=== PATIENT | female | born 1975 | race Caucasian/White ===

== ENCOUNTER 2016-08-10 18:34 | Emergency (ER) | payer MEDICARE, MEDICAID ==
[2016-08-10 20:14] VITALS: BP 114/76
--- NOTE | 2016-08-10 20:33 | UC ---
Throat Pain/Nasal Josiah HPI - HPI Summary HPI Summary: Nasal congestion, ST, cough, aches starting 5 days ago. Denies fever or trouble breathing. - History of Current Complaint Chief Complaint: UCGeneralIllness Stated Complaint: SORE THROAT Time Seen by Provider: 08/10/16 20:16 Hx Obtained From: Patient Hx Last Menstrual Period: has mirena ?: No Onset/Duration: Gradual Onset, Lasting Days Severity: Moderate Cough: Productive Associated Signs & Symptoms: Positive: Sinus Discomfort, Nasal Discharge. Negative: Fever, Vomiting - Allergies/Home Medications Allergies/Adverse Reactions: Allergies Allergy/AdvReac Type Severity Reaction Status Date / Time No Known Allergies Allergy Verified 08/10/16 20:13 PMH/Surg Hx/FS Hx/Imm Hx Endocrine History Of: Denies: Diabetes, Thyroid Disease Cardiovascular History Of: Denies: Cardiac Disorders, Hypertension, Pacemaker/ICD Respiratory History Of: Denies: COPD, Asthma GI/ History Of: Denies: Ulcer - Surgical History Surgical History: Yes Surgery Procedure, Year, and Place: LSP SURGERY L4-L5, - Family History Known Family History: Positive: None - Social History Lives: With Family Alcohol Use: Occasionally Substance Use Type: None Smoking Status (MU): Heavy Every Day Tobacco Smoker Type: Cigarettes Amount Used/How Often: 1 ppd Length of Time of Smoking/Using Tobacco: started ~ age 19 Have You Smoked in the Last Year: Yes - Immunization History Most Recent Influenza Vaccination: [id number] Review of Systems Constitutional: Negative Skin: Negative Eyes: Negative ENT: Sore Throat, Nasal Discharge Respiratory: Cough Cardiovascular: Negative Gastrointestinal: Negative Genitourinary: Negative Motor: Negative Neurovascular: Negative Musculoskeletal: Negative Neurological: Negative Psychological: Negative All Other Systems Reviewed And Are Negative: Yes Physical Exam Triage Information Reviewed: Yes Appearance: Well-Appearing, No Pain Distress, Well-Nourished Vital Signs: Initial Vital Signs Temp 98.0 F 08/10/16 20:10 Pulse 85 08/10/16 20:10 Resp 16 08/10/16 20:10 BP 114/76 08/10/16 20:10 Pulse Ox 98 08/10/16 20:10 Vital Signs Reviewed: Yes Eye Exam: Normal Eyes: Positive: Conjunctiva Clear ENT: Positive: Hearing grossly normal, Pharynx normal, Nasal congestion, Nasal drainage, TMs normal Dental Exam: Normal Neck exam: Normal Neck: Positive: Supple, Nontender, No Lymphadenopathy Respiratory Exam: Normal Respiratory: Positive: Chest non-tender, Lungs clear, Normal breath sounds, No respiratory distress, No accessory muscle use Cardiovascular Exam: Normal Cardiovascular: Positive: RRR, No Murmur Musculoskeletal Exam: Normal Musculoskeletal: Positive: ROM Intact Neurological Exam: Normal Neurological: Positive: Alert Psychological Exam: Normal Skin Exam: Normal Throat Pain/Nasal Course/Dx - Differential Dx/Diagnosis Provider Diagnoses: URI, likely viral Discharge - Discharge Plan Condition: Stable Disposition: HOME Patient Education Materials: Upper Respiratory Infection (ED) Additional Instructions: Call or return if you develop increasing fever, shortness of breath, chest pain , bloody sputum, or otherwise worsen. If you have not improved at all after several days, contact your primary care physician or return here.
== END 2016-08-10 20:53 | disposition home or self-care (01) ==
LOC: UCCORT 18:34
DX: J06.9 Acute upper respiratory infection, unspecified (principal); F17.210 Nicotine dependence, cigarettes, uncomplicated
CPT/HCPCS: 87651; 99211; G0463

== ENCOUNTER 2017-02-03 10:40 | Emergency (ER) | payer MEDICARE, MEDICAID ==
[2017-02-03 11:01] VITALS: BP 108/74
--- NOTE | 2017-02-03 11:32 | RAD ---
INDICATION: Right great toe pain and swelling one day after falling off of a stool TECHNIQUE: 3 views of the right great toe were obtained. FINDINGS: The visualized bones are normal alignment. Joint spaces appear maintained. No fracture is seen. IMPRESSION: NO EVIDENCE FOR FRACTURE. IF THE PATIENT'S SYMPTOMS PERSIST RECOMMEND FOLLOW-UP IMAGING.
--- NOTE | 2017-02-03 11:57 | UC ---
Lower Extremity/Ankle HPI - HPI Summary HPI Summary: YESTERDAY HIT RIGHT 1ST TOE ON STOOL. 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 Hx Last Menstrual Period: unknown, mirena Onset/Duration: Sudden Onset, Lasting Days Severity Initially: Mild Severity Currently: Mild Aggravating Factor(s): Standing, Ambulation Alleviating Factor(s): Rest Able to Bear Weight: Yes - Risk Factors Gout Risk Factors: Negative DVT Risk Factors: Negative Septic Arthritis Risk Factor: Negative - Allergies/Home Medications Allergies/Adverse Reactions: Allergies Allergy/AdvReac Type Severity Reaction Status Date / Time No Known Allergies Allergy Verified 02/03/17 11:01 PMH/Surg Hx/FS Hx/Imm Hx Previously Healthy: Yes - Surgical History Surgical History: Yes Surgery Procedure, Year, and Place: LSP SURGERY L4-L5, - Family History Known Family History: Positive: None Negative: Blood Disorder - Social History Occupation: Employed Full-time Lives: With Family Alcohol Use: Occasionally Substance Use Type: None Smoking Status (MU): Heavy Every Day Tobacco Smoker Type: Cigarettes Amount Used/How Often: 1 ppd Length of Time of Smoking/Using Tobacco: started ~ age 19 Have You Smoked in the Last Year: Yes - Immunization History Most Recent Influenza Vaccination: 12/2016 Review of Systems Constitutional: Negative Skin: Bruising Eyes: Negative ENT: Negative Respiratory: Negative Cardiovascular: Negative Gastrointestinal: Negative Genitourinary: Negative Motor: Negative Neurovascular: Negative Musculoskeletal: Arthralgia, Myalgia Neurological: Negative Psychological: Negative Is Patient Immunocompromised?: No All Other Systems Reviewed And Are Negative: Yes Physical Exam Triage Information Reviewed: Yes Appearance: Well-Appearing, No Pain Distress, Well-Nourished Vital Signs: Initial Vital Signs Temp 98.1 F 02/03/17 10:58 Pulse 75 02/03/17 10:58 Resp 16 02/03/17 10:58 BP 108/74 02/03/17 10:58 Pulse Ox 98 02/03/17 10:58 Vital Signs Reviewed: Yes Eye Exam: Normal ENT Exam: Normal ENT: Positive: Normal ENT inspection, TMs normal Dental Exam: Normal Neck exam: Normal Neck: Positive: Supple, Nontender Respiratory Exam: Normal Respiratory: Positive: Chest non-tender, Lungs clear, Normal breath sounds, No respiratory distress, No accessory muscle use Cardiovascular Exam: Normal Cardiovascular: Positive: RRR, No Murmur, Pulses Normal Abdominal Exam: Normal Musculoskeletal Exam: Normal Musculoskeletal: Positive: Strength Intact, ROM Intact Neurological Exam: Normal Psychological Exam: Normal Skin Exam: Normal Lower Extremity Course/Dx - Differential Dx/Diagnosis Differential Diagnosis/HQI/PQRI: Fracture (Closed), Sprain, Strain Provider Diagnoses: RIGHT FIRST TOE CONTUSION Discharge - Discharge Plan Condition: Stable Disposition: HOME Patient Education Materials: Foot Contusion (ED) Referrals: REHAN Cisneros [Primary Care Provider] -
== END 2017-02-03 12:00 | disposition home or self-care (01) ==
LOC: UCCORT 10:40
DX: S90.111A Contusion of right great toe without damage to nail, initial encounter (principal); F17.210 Nicotine dependence, cigarettes, uncomplicated; W22.03XA Walked into furniture, initial encounter
CPT/HCPCS: 99211; G0463

== ENCOUNTER 2017-09-07 15:29 | Emergency (ER) | payer MEDICARE, MEDICAID ==
[2017-09-07 15:46] VITALS: BP 110/66
--- NOTE | 2017-09-07 16:14 | UC ---
Hand/Wrist HPI - HPI Summary HPI Summary: 42 yo female was walking dog dog jumped into car and pulled her over c/o right ring finger pain she is right handed - History Of Current Complaint Chief Complaint: UCUpperExtremity Stated Complaint: RT HAND RING FINGER INJURY Time Seen by Provider: 09/07/17 15:48 Hx Obtained From: Patient Hx Last Menstrual Period: has mirena Onset/Duration: Sudden Onset Severity Initially: Moderate Severity Currently: Mild Pain Intensity: 3 Pain Scale Used: 0-10 Numeric Character Of Pain: Dull, Aching, Throbbing Aggravating Factor(s): Movement Alleviating Factor(s): Rest, Ice Associated Signs And Symptoms: Positive: Swelling, Bruising Hands: 1 - swollen/ecchymotic - Allergies/Home Medications Allergies/Adverse Reactions: Allergies Allergy/AdvReac Type Severity Reaction Status Date / Time No Known Allergies Allergy Verified 02/03/17 11:01 Home Medications: Home Medications Levonorgestrel (Iud) [Mirena IUD] 20 mcg IU DAILY 09/07/17 [History Confirmed ] PMH/Surg Hx/FS Hx/Imm Hx Previously Healthy: Yes - Surgical History Surgical History: Yes Surgery Procedure, Year, and Place: LSP SURGERY L4-L5, - Family History Known Family History: Positive: None Negative: Cardiac Disease, Hypertension, Diabetes, Blood Disorder - Social History Alcohol Use: Rare Substance Use Type: None Smoking Status (MU): Heavy Every Day Tobacco Smoker Type: Cigarettes Amount Used/How Often: 1 ppd Length of Time of Smoking/Using Tobacco: started ~ age 19 Have You Smoked in the Last Year: Yes - Immunization History Most Recent Influenza Vaccination: 12/2016 Review of Systems Constitutional: Negative Skin: Bruising Eyes: Negative ENT: Negative Respiratory: Negative Cardiovascular: Negative Gastrointestinal: Negative Genitourinary: Negative Motor: Negative Neurovascular: Negative Musculoskeletal: Arthralgia Neurological: Negative Psychological: Negative Is Patient Immunocompromised?: No All Other Systems Reviewed And Are Negative: Yes Physical Exam Triage Information Reviewed: Yes Appearance: Well-Appearing, No Pain Distress, Well-Nourished Vital Signs: Initial Vital Signs Temp 98.1 F 09/07/17 15:42 Pulse 78 09/07/17 15:42 Resp 16 09/07/17 15:42 BP 110/66 09/07/17 15:42 Pulse Ox 99 09/07/17 15:42 Vital Signs Reviewed: Yes Eyes: Positive: Conjunctiva Clear ENT: Positive: Hearing grossly normal. Negative: Nasal congestion, Nasal drainage, Trismus, Muffled voice, Hoarse voice Neck: Positive: Supple, Nontender Respiratory: Positive: Lungs clear, Normal breath sounds, No respiratory distress, No accessory muscle use Cardiovascular: Positive: RRR, No Murmur Musculoskeletal: Positive: Edema @ - 4th dp right, Other: - see image Neurological: Positive: Alert Psychological Exam: Normal Skin Exam: Normal Diagnostics - Radiology No standard instances Xray Interpretation: Positive (See Comments) - There is a comminuted fracture of the distal phalanx of the fourth digit Radiology Interpretation Completed By: Radiologist Hand/Wrist Course/Dx - Differential Dx/Diagnosis Provider Diagnoses: fracture right 4th distal phalanx. closed. min distracted Discharge - Sign-Out/Discharge Documenting (check all that apply): Discharge/Admit/Transfer - Discharge Plan Condition: Stable Disposition: HOME Patient Education Materials: Finger Fracture (ED) Referrals: Scott Sadler MD [Medical Doctor] - As Soon As Possible Additional Instructions: elevate elevate elevate splint advil or amanve call orthopedist in AM for follow to make sure you don't need a pin - Billing Disposition and Condition Condition: STABLE Disposition: HOME
--- NOTE | 2017-09-07 16:15 | RAD ---
INDICATION: Injury COMPARISON: None TECHNIQUE: 3 views of the right third digit were obtained FINDINGS: There is a comminuted fracture of the distal phalanx of the fourth digit. The fracture fragments are mildly distracted. There is associated soft tissue swelling. No additional findings were obtained. IMPRESSION: FRACTURE DISTAL PHALANX OF THE THIRD DIGIT
== END 2017-09-07 16:29 | disposition home or self-care (01) ==
LOC: UCCORT 15:29
DX: S62.634A Displaced fracture of distal phalanx of right ring finger, initial encounter for closed fracture (principal); W17.89XA Other fall from one level to another, initial encounter; Y93.89 Activity, other specified; Y92.9 Unspecified place or not applicable; F17.210 Nicotine dependence, cigarettes, uncomplicated
CPT/HCPCS: 73140; 99211; G0463

== ENCOUNTER 2018-09-08 19:35 | Emergency (ER) | payer MEDICAID, MEDICARE ==
[2018-09-08 19:58] VITALS: BP 115/75
--- NOTE | 2018-09-08 20:02 | UC ---
Lower Extremity/Ankle HPI - HPI Summary HPI Summary: Over the past week the patient noticed that her right paz was starting to hurt. She had a dog bite there approximate 3 years ago and has had no problems until the past week. She denies any injury. She states that her right paz is swollen she denies any calf pain. - History of Current Complaint Chief Complaint: UCLowerExtremity Stated Complaint: RIGHT LOWER LEG SWELLING Time Seen by Provider: 09/08/18 19:57 Hx Obtained From: Patient Hx Last Menstrual Period: has mirena ?: No Onset/Duration: Gradual Onset Severity Initially: Mild Severity Currently: Mild Pain Intensity: 5 Aggravating Factor(s): Ambulation, Other - More pain with stretching her foot. Alleviating Factor(s): Rest Able to Bear Weight: Yes - Allergies/Home Medications Allergies/Adverse Reactions: Allergies Allergy/AdvReac Type Severity Reaction Status Date / Time No Known Allergies Allergy Verified 09/08/18 19:58 PMH/Surg Hx/FS Hx/Imm Hx Previously Healthy: Yes - Surgical History Surgical History: Yes Surgery Procedure, Year, and Place: LSP SURGERY L4-L5, - Family History Known Family History: Positive: None Negative: Cardiac Disease, Hypertension, Diabetes, Blood Disorder - Social History Alcohol Use: Occasionally Substance Use Type: None Smoking Status (MU): Former Smoker Type: Cigarettes Amount Used/How Often: 1 ppd Length of Time of Smoking/Using Tobacco: started ~ age 19 Have You Smoked in the Last Year: Yes When Did the Patient Quit Smoking/Using Tobacco: 02/2018 - Immunization History Most Recent Influenza Vaccination: 12/2016 Review of Systems All Other Systems Reviewed And Are Negative: Yes Skin: Positive: Other - Tenderness over the healed dog bite (from 3 years ago). Mild swelling of the right tib-fib and ankle. Motor: Positive: Negative Neurovascular: Positive: Negative Musculoskeletal: Positive: Negative Neurological: Positive: Negative Is Patient Immunocompromised?: No Physical Exam Triage Information Reviewed: Yes Appearance: Well-Appearing, No Pain Distress, Well-Nourished Vital Signs: Initial Vital Signs Temp 97.4 F 09/08/18 19:55 Pulse 78 09/08/18 19:55 Resp 16 09/08/18 19:55 BP 115/75 09/08/18 19:55 Pulse Ox 100 09/08/18 19:55 Vital Signs Reviewed: Yes Musculoskeletal: Positive: Strength Intact, ROM Intact, Other: - Calf nontender , right lower leg is mildly swollen compared to the left, the area over the healed dog bite is warm to touch with mild erythema. Good peripheral pulses neuro sensation capillary refill, full range of motion although with flexion she does feel more of a pulling sensation from the right ankle up to the area of the heel dog bite. Neurological: Positive: Alert, Muscle Tone Normal Lower Extremity Course/Dx - Course Course Of Treatment: X-ray of the right tib-fib was negative. At this point I believe this is a mild cellulitis and she is going to elevate as much as possible over the weekend apply warm compresses and start an antibiotic and follow-up with her primary care provider next week if no improvement. I advised her to go to the emergency room if she has any worsening symptoms, if she has increased pain or change in temperature of her lower leg. The patient is agreeable with this plan of action. - Differential Dx/Diagnosis Provider Diagnosis: Cellulitis of right lower leg Discharge - Sign-Out/Discharge Documenting (check all that apply): Patient Departure All imaging exams completed and their final reports reviewed: No - Discharge Plan Condition: Fair Disposition: HOME Prescriptions: Amoxicillin/Clavulanate TAB* [Augmentin TAB 875*] 875 mg PO BID 10 Days #20 tab Patient Education Materials: Cellulitis (DC) Referrals: Emilia Cheung PA [Primary Care Provider] - Additional Instructions: Elevate as much as possible over the weekend, warm moist compresses to the area 4-6 times a day for 20 minutes each time, you can take Motrin 6 or milligrams every 8 hours for pain and take the Augmentin with food. Definite follow-up with your primary care provider in 3 or 4 days if no improvement if you have any worsening symptoms over the weekend you are to go to the emergency room for further care. - Billing Disposition and Condition Condition: FAIR Disposition: Home - Attestation Statements Provider Attestation: Per institutional requirements, I have reviewed the chart, however, I was not consulted specifically or made aware of this patient by the midlevel provider. I did not personally evaluate, interact with , or disposition this patient.
--- NOTE | 2018-09-09 09:30 | UC ---
- Progress Note Progress Note: xray report right Fib/Tib: no fracture noted Course/Dx - Diagnoses Provider Diagnoses: Cellulitis of right lower leg Discharge - Sign-Out/Discharge Documenting (check all that apply): Patient Departure All imaging exams completed and their final reports reviewed: Yes - Discharge Plan Condition: Fair Disposition: HOME Prescriptions: Amoxicillin/Clavulanate TAB* [Augmentin TAB 875*] 875 mg PO BID 10 Days #20 tab Patient Education Materials: Cellulitis (DC) Referrals: Emilia Cheung PA [Primary Care Provider] - Additional Instructions: Elevate as much as possible over the weekend, warm moist compresses to the area 4-6 times a day for 20 minutes each time, you can take Motrin 6 or milligrams every 8 hours for pain and take the Augmentin with food. Definite follow-up with your primary care provider in 3 or 4 days if no improvement if you have any worsening symptoms over the weekend you are to go to the emergency room for further care. - Billing Disposition and Condition Condition: FAIR Disposition: Home
== END 2018-09-08 20:29 | disposition home or self-care (01) ==
LOC: UCCORT 19:35
DX: L03.115 Cellulitis of right lower limb (principal); Z87.891 Personal history of nicotine dependence
CPT/HCPCS: 99212; G0463

== ENCOUNTER 2018-10-09 18:31 | Emergency (ER) | payer MEDICARE ==
[2018-10-09 19:17] VITALS: BP 123/72
--- NOTE | 2018-10-09 19:46 | UC ---
Knee Pain HPI - HPI Summary HPI Summary: 43-year-old female comes in with a chief complaint of right knee pain. About one week ago patient fell and landed on her right knee. She did have an abrasion there which scabbed over and then healed up and since then she's had swelling on the anterior portion of her knee. Hurts worse when she tries put any weight on the knee itself when kneeling. Knee feels stable to activity and weightbearing. No fevers or chills. No drainage. - History of Current Complaint Chief Complaint: UCLowerExtremity Stated Complaint: RIGHT KNEE COMPLAINT Time Seen by Provider: 10/09/18 19:35 Hx Last Menstrual Period: IUD Pain Intensity: 0 - Allergies/Home Medications Allergies/Adverse Reactions: Allergies Allergy/AdvReac Type Severity Reaction Status Date / Time No Known Allergies Allergy Verified 10/09/18 19:12 PMH/Surg Hx/FS Hx/Imm Hx Previously Healthy: Yes - Surgical History Surgical History: Yes Surgery Procedure, Year, and Place: LSP SURGERY L4-L5 - Family History Known Family History: Positive: None Negative: Cardiac Disease, Hypertension, Diabetes, Blood Disorder - Social History Alcohol Use: Occasionally Substance Use Type: None Smoking Status (MU): Heavy Every Day Tobacco Smoker Type: Cigarettes Amount Used/How Often: 1/2 ppd Length of Time of Smoking/Using Tobacco: started ~ age 19 Have You Smoked in the Last Year: Yes When Did the Patient Quit Smoking/Using Tobacco: 02/2018 - Immunization History Most Recent Influenza Vaccination: 12/2016 Review of Systems All Other Systems Reviewed And Are Negative: Yes Constitutional: Positive: Negative Skin: Positive: Other - SEE HPI Eyes: Positive: Negative ENT: Positive: Negative Respiratory: Positive: Negative Cardiovascular: Positive: Negative Gastrointestinal: Positive: Negative Motor: Positive: Negative Neurovascular: Positive: Negative Musculoskeletal: Positive: Other: - SEE HPI Neurological: Positive: Negative Psychological: Positive: Negative Is Patient Immunocompromised?: No Physical Exam Triage Information Reviewed: Yes Appearance: Well-Appearing, No Pain Distress, Well-Nourished Vital Signs: Initial Vital Signs Temp 97.2 F 10/09/18 19:13 Pulse 76 10/09/18 19:13 Resp 16 10/09/18 19:13 BP 123/72 10/09/18 19:13 Pulse Ox 99 10/09/18 19:13 Vital Signs Reviewed: Yes Eye Exam: Normal Eyes: Positive: Conjunctiva Clear Neck: Positive: Supple Respiratory: Positive: No respiratory distress Musculoskeletal: Positive: Other: - The right knee and right knee on examination is swollen over the prepatellar bursa. It is warm to touch but not hot. There is about a 1 inch diameter area that's erythematous by the patient reports the abrasion healed. No drainage. Knee is stable to examination. It' s only tender in the anterior aspect of the lateral posterior aspects. Neurological: Positive: Alert, Muscle Tone Normal Psychological: Positive: Age Appropriate Behavior Skin: Positive: Other - MILD ERYTHEMA ANTERIOR RT KNEE Knee Pain Course/Dx - Course Course Of Treatment: I discussed the x-rays with the patient. I do not see any fracture radiologist reading is pending. There is prepatellar swelling. Is a small amount of erythema in the middle which the patient says has stayed about the same cyst the beginning of injury. This has potential to develop into a cellulitis. Because of this I have written a prescription for Augmentin to be used if this gets worse at all. Otherwise ice elevation and rest and follow-up with sports medicine or orthopedics. - Differential Dx/Diagnosis Provider Diagnosis: Prepatellar bursitis, right knee Discharge - Sign-Out/Discharge Documenting (check all that apply): Patient Departure All imaging exams completed and their final reports reviewed: No - Discharge Plan Condition: Stable Disposition: HOME Prescriptions: Amoxicillin/Clavulanate TAB* [Augmentin TAB 875*] 875 mg PO BID #20 tab Patient Education Materials: Knee Bursitis (ED) Referrals: Emilia Cheung PA [Primary Care Provider] - Scott Sadler MD [Medical Doctor] - [facility] [Provider Group] Additional Instructions: FOLLOW UP WITH ORTHOPEDICS OR SPORTS MEDICINE IF NOT COMPLETELY IMPROVED. GET RECHECKED SOONER IF YOUR CONDITION WORSENS; PAIN, ANY SIGNS OF INFECTION OR ANY QUESTIONS OR CONCERNS. - Billing Disposition and Condition Condition: STABLE Disposition: Home
== END 2018-10-09 19:55 | disposition home or self-care (01) ==
LOC: UCCORT 18:31
DX: M70.41 Prepatellar bursitis, right knee (principal); F17.210 Nicotine dependence, cigarettes, uncomplicated
CPT/HCPCS: 99212; G0463

== ENCOUNTER 2019-01-05 17:56 | Emergency (ER) | payer MEDICARE ==
[2019-01-05 18:46] VITALS: BP 116/81
--- NOTE | 2019-01-05 19:06 | UC ---
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 Denies any discharge from the ear or any URI symptoms. She also states not having gone swimming recently or have gotten the ear submerged in water."0 -feels fine o/w -no fevers/chills or URI sx -sudden onset last night - History of Current Complaint Chief Complaint: UCEar Stated Complaint: L EAR PAIN Time Seen by Provider: 01/05/19 18:52 Hx Last Menstrual Period: pt states she has a mirena in and does not get a menses Pain Intensity: 8 - Allergies/Home Medications Allergies/Adverse Reactions: Allergies Allergy/AdvReac Type Severity Reaction Status Date / Time No Known Allergies Allergy Verified 01/05/19 18:45 Home Medications: Home Medications Acetaminophen [Acetaminophen Extra Strength] 1,000 mg PO ONCE PRN 01/05/19 [ History Confirmed 01/05/19] PMH/Surg Hx/FS Hx/Imm Hx Previously Healthy: Yes - Surgical History Surgical History: Yes Surgery Procedure, Year, and Place: LSP SURGERY L4-L5 - Family History Known Family History: Positive: None Negative: Cardiac Disease, Hypertension, Diabetes, Blood Disorder - Social History Alcohol Use: Occasionally Substance Use Type: None Smoking Status (MU): Heavy Every Day Tobacco Smoker Type: Cigarettes Amount Used/How Often: 1 ppd Length of Time of Smoking/Using Tobacco: started ~ age 18 Have You Smoked in the Last Year: Yes When Did the Patient Quit Smoking/Using Tobacco: 02/2018 - Immunization History Most Recent Influenza Vaccination: 12/2016 Review of Systems All Other Systems Reviewed And Are Negative: Yes Constitutional: Positive: Negative Skin: Positive: Negative Eyes: Positive: Negative ENT: Positive: Ear Ache Respiratory: Positive: Negative Cardiovascular: Positive: Negative Gastrointestinal: Positive: Negative Motor: Positive: Negative Neurovascular: Positive: Negative Musculoskeletal: Positive: Negative Neurological: Positive: Negative Psychological: Positive: Negative Is Patient Immunocompromised?: No Physical Exam Triage Information Reviewed: Yes Appearance: Well-Appearing, No Pain Distress, Well-Nourished Vital Signs: Initial Vital Signs Temp 98 F 01/05/19 18:41 Pulse 79 01/05/19 18:41 Resp 14 01/05/19 18:41 BP 116/81 01/05/19 18:41 Pulse Ox 100 01/05/19 18:41 Vital Signs Reviewed: Yes Eye Exam: Normal ENT: Positive: Pharynx normal, TM red - /retsracted w/ purulent fluid behind TM. intact TM. tender at tragus. canal nml, Uvula midline. Negative: Sinus tenderness Neck exam: Normal Neck: Positive: Supple, Nontender, No Lymphadenopathy Respiratory Exam: Normal Respiratory: Positive: Lungs clear, Normal breath sounds, No respiratory distress, No accessory muscle use. Negative: Crackles, Rhonchi, Stridor, Wheezing Cardiovascular Exam: Normal Cardiovascular: Positive: RRR Abdominal Exam: Normal Musculoskeletal Exam: Normal Neurological Exam: Normal Psychological Exam: Normal Skin Exam: Normal Ear Complaint Course/Dx - Course Course Of Treatment: left AOM - amox & probiotics. f/u cooner if sx increase or persist - Differential Dx/Diagnosis Differential Diagnosis/HQI/PQRI: Otitis Externa, Otitis Media Provider Diagnosis: Left otitis media Discharge ED - Sign-Out/Discharge Documenting (check all that apply): Patient Departure All imaging exams completed and their final reports reviewed: No Studies - Discharge Plan Condition: Stable Disposition: HOME Prescriptions: Amoxicillin PO (*) [Amoxicillin 875 MG (*)] 875 mg PO BID #20 tab Patient Education Materials: Ear Infection (ED) Referrals: Emilia Cheung PA [Primary Care Provider] - 1 Week Additional Instructions: It is recommended that you take a priobiotic daily while you are on antibiotics. A few common brands that you can buy over the counter are colon health, align and florastor. These can help prevent a colon infection called c diff that can be associated with antibiotic use. - Billing Disposition and Condition Condition: STABLE Disposition: Home
== END 2019-01-05 19:15 | disposition home or self-care (01) ==
LOC: UCCORT 17:56
DX: H66.92 Otitis media, unspecified, left ear (principal); F17.210 Nicotine dependence, cigarettes, uncomplicated
CPT/HCPCS: 99212; G0463

== ENCOUNTER 2019-07-08 07:47 | Emergency (ER) | payer MEDICARE ==
[2019-07-08 08:05] VITALS: BP 112/53
--- NOTE | 2019-07-08 08:29 | UC ---
Throat Pain/Nasal Josiah HPI - HPI Summary HPI Summary: 44 yo female presents with sore throat. She tells me that for the last 4-5 days she has had a sore throat worse on the left and swollen left tonsil. She has been doing salt water gargles with little relief. She is eating, drinking, and tolerating po well. Denies fever, sinus symptoms, cough, rash, abdominal pain, n /v. - History of Current Complaint Chief Complaint: UCGeneralIllness Stated Complaint: SORE THROAT Time Seen by Provider: 07/08/19 08:29 Hx Obtained From: Patient Hx Last Menstrual Period: mirena Onset/Duration: Sudden Onset Severity: Moderate Pain Intensity: 5 Pain Scale Used: 0-10 Numeric - Allergies/Home Medications Allergies/Adverse Reactions: Allergies Allergy/AdvReac Type Severity Reaction Status Date / Time No Known Allergies Allergy Verified 07/08/19 08:05 Home Medications: Home Medications Cyanocobalamin INJ * [Vitamin B12 INJ *] 1,000 mcg IM MONTHLY 06/26/15 [History Confirmed 07/08/19] Venlafaxine EXT RELEASE CAP* [Effexor Xr CAP*] 150 mg PO DAILY 06/26/15 [ History Confirmed 07/08/19] Levonorgestrel (Iud) [Mirena IUD] 20 mcg IU DAILY 09/07/17 [History Confirmed ] Acetaminophen [Acetaminophen Extra Strength] 1,000 mg PO ONCE PRN 01/05/19 [ History Confirmed 07/08/19] Amoxicillin PO (*) [Amoxicillin 875 MG (*)] 875 mg PO BID #14 tab 07/08/19 [Rx] predniSONE 20 mg TAB [Deltasone 20 MG TAB*] 20 mg PO DAILY #12 tab 07/08/19 [Rx] PMH/Surg Hx/FS Hx/Imm Hx Psychological History: Anxiety, Depression - Surgical History Surgical History: Yes Surgery Procedure, Year, and Place: LSP SURGERY L4-L5 - Family History Known Family History: Positive: None Negative: Cardiac Disease, Hypertension, Diabetes, Blood Disorder - Social History Lives: With Family Alcohol Use: Occasionally Substance Use Type: None Smoking Status (MU): Heavy Every Day Tobacco Smoker Type: Cigarettes Amount Used/How Often: 1 ppd Length of Time of Smoking/Using Tobacco: started ~ age 18 Have You Smoked in the Last Year: Yes When Did the Patient Quit Smoking/Using Tobacco: 02/2018 - Immunization History Most Recent Influenza Vaccination: 12/2016 Review of Systems All Other Systems Reviewed And Are Negative: No Constitutional: Positive: Negative Skin: Positive: Negative Eyes: Positive: Negative ENT: Positive: Sore Throat Respiratory: Positive: Negative Cardiovascular: Positive: Negative Gastrointestinal: Positive: Negative Physical Exam - Summary Physical Exam Summary: GENERAL: NAD. WDWN. No pain distress. SKIN: No rashes, sores, lesions, or open wounds. HEENT: Head: AT/NC Eyes: Conjunctiva clear without inflammation or discharge. Ears: Hearing grossly normal. TMs intact, no bulging, erythema, or edema. Nose: Nasal mucosa pink and moist. NTTP maxillary and frontal sinus. Throat: Posterior oropharynx mild erythema and 3+ LEFT tonsillar enlargement. No exudates. Uvula midline. No hoarse voice or muffled voice. 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 NECK: Supple. LEFT tonsillar LAD with mild TTP. No abscess or induration or erythema. CHEST: CTAB. No r/r/w. No accessory muscle use. Breathing comfortably and in no distress. CV: RRR. Pulses intact. Cap refill <2seconds NEURO: Alert. PSYCH: Age appropriate behavior. Triage Information Reviewed: Yes Vital Signs: Initial Vital Signs Temp 97.9 F 07/08/19 08:03 Pulse 67 07/08/19 08:03 Resp 16 07/08/19 08:03 BP 112/53 07/08/19 08:03 Pulse Ox 100 07/08/19 08:03 Laboratory Tests 07/08/19 08:12 Group A Strep Rapid Negative Vital Signs Reviewed: Yes Throat Pain/Nasal Course/Dx - Course Course Of Treatment: POC strep negative. Suspect tonsillitis. Given degree of unilateral tonsil edema and discomfort - will treat with anbx and steroid taper at this time - Differential Dx/Diagnosis Provider Diagnosis: Tonsillitis Discharge ED - Sign-Out/Discharge Documenting (check all that apply): Patient Departure All imaging exams completed and their final reports reviewed: No Studies - Discharge Plan Condition: Stable Disposition: HOME Prescriptions: Amoxicillin PO (*) [Amoxicillin 875 MG (*)] 875 mg PO BID #14 tab predniSONE 20 mg TAB [Deltasone 20 MG TAB*] 20 mg PO DAILY #12 tab Patient Education Materials: Tonsillitis (ED) Referrals: Emilia Cheung PA [Primary Care Provider] - Additional Instructions: If you develop a fever, shortness of breath, chest pain, new or worsening symptoms - please call your PCP or go to the ED immediately. - Billing Disposition and Condition Condition: STABLE Disposition: Home
== END 2019-07-08 08:43 | disposition home or self-care (01) ==
LOC: UCCORT 07:47
DX: J03.90 Acute tonsillitis, unspecified (principal); F17.210 Nicotine dependence, cigarettes, uncomplicated
CPT/HCPCS: 87651; 99212; G0463